=== PATIENT | male | born 1980 | race Caucasian/White ===

== ENCOUNTER 2016-06-13 15:32 | Emergency (ER) | payer OTHER ==
[2016-06-13 16:02] VITALS: BP 124/85
[2016-06-13] MEDS ORDERED: Famotidine TAB* 20 MG PO ONE (16:23)
--- NOTE | 2016-06-13 17:10 | RAD ---
INDICATION: Left lower quadrant pain COMPARISON: None TECHNIQUE: Noncontrast axial source images were obtained from the hemidiaphragms to the symphysis pubis. This examination was ordered using a renal stone protocol which is performed without oral or intravenous contrast and therefore has inherent limitations when used to evaluate other intra-abdominal or intrapelvic pathology. Consider conventional contrast enhanced imaging if clinically indicated. Lung bases: The lung bases are clear. Liver: The liver is normal in size. Noncontrast imaging shows no evidence of a hepatic mass or ductal dilatation. Gallbladder: There are no calcified gallstones. There is no evidence of wall thickening or pericholecystic fluid.. Spleen: The spleen is normal in size. The noncontrast CT appearance is normal. Pancreas: Noncontrast imaging shows no pancreatic mass or ductal dilitation. Adrenal glands: No masses are identified. Kidneys/Bladder: There is no evidence of nephrolithiasis or CT evidence of hydronephrosis. Noncontrast imaging shows no evidence of a renal mass. The bladder is unremarkable.. Adenopathy: There is no evidence of intraperitoneal or retroperitoneal adenopathy. Evaluation is limited without oral contrast. Fluid collections: There are no free or localized fluid collections. Vessels: The aorta and iliac vessels are normal in caliber. There are no significant atherosclerotic changes. The IVC appears normal Pelvic organs: The prostate and seminal vesicles appear normal GI tract: Evaluation of the bowel is limited without oral contrast. There is a hiatal hernia/patulous GE junction. The stomach, small bowel, and lower GI tract otherwise appear grossly normal. There are no obstructive findings. The appendix is visualized and appears normal. Soft tissues: No soft tissue abnormalities of the extraperitoneal abdomen or pelvis are identified. Osseous structures: There are no acute osseous findings. IMPRESSION: NONCONTRAST IMAGING SHOWS NO ACUTE CT FINDINGS
--- NOTE | 2016-06-13 17:20 | UC ---
UC General HPI - HPI Summary HPI Summary: patient has been nauseous for about a month c/o of LLQ pain and loose stools decreased appetite. no fever, no blood in stool, he does not voimit just feels nauseasted. denies dysuria.. patient has hx of RA, psoriasis - History of Current Complaint Chief Complaint: UCAbdominalPain Stated Complaint: NAUSEA Time Seen by Provider: 06/13/16 16:12 Hx Obtained From: Patient Onset/Duration: Gradual Onset, Lasting Weeks Timing: Constant Onset Severity: Mild Current Severity: Moderate Pain Intensity: 4 Pain Location at: LLQ Character: cramping, pressure Associated Signs & Symptoms: Positive: Nausea - Allergy/Home Medications Allergies/Adverse Reactions: Allergies Allergy/AdvReac Type Severity Reaction Status Date / Time Penicillins Allergy Rash Verified 06/13/16 16:02 Home Medications: Home Medications Ondansetron [Zuplenz] 4 mg PO Q6H PRN 06/13/16 [History Confirmed 06/13/16] Topiramate [Topamax] 50 mg PO TID PRN 06/13/16 [History Confirmed 06/13/16] predniSONE TAB* [Deltasone TAB*] 20 mg PO DAILY 06/13/16 [History Confirmed ] PMH/Surg Hx/FS Hx/Imm Hx Previously Healthy: Yes Endocrine History Of: Denies: Diabetes, Thyroid Disease, Hyperthyroidism, Hypothyroidism, Dyslipidemia Cardiovascular History Of: Reports: Hypertension Denies: Cardiac Disorders, Pacemaker/ICD, Myocardial Infarction, Congestive Heart Failure, Atrial Fibrillation, Deep Vein Thrombosis, Bleeding Disorders Respiratory History Of: Denies: COPD, Asthma, Bronchitis, Pneumonia, Pulmonary Embolism GI/ History Of: Denies: Gastroesophageal Reflux, Ulcer, Gastrointestinal Bleed, Gall Bladder Disease, Kidney Stones, Diverticulitis, Renal Disease, Urosepsis Neurological History Of: Denies: TIA, CVA, Dementia, Seizures, Migraine Psychological History Of: Denies: Anxiety, Depression, Bipolar Disorder, Schizophrenia, Post Traumatic Stress Disorder - Surgical History Surgical History: Yes Surgery Procedure, Year, and Place: Left Shoulder Bone Spurs, 2011, [place]; Left Elbow Bone Spurs, ~2010, [place]; Left Hand Silicone Knuckles, ~2009, [place]. LYMPH NODE BX - Family History Known Family History: Positive: Hypertension - Social History Alcohol Use: Rare Substance Use Type: Prescribed Substance Use Comment - Amount & Last Used: hydrocodone/acetaminophen Smoking Status (MU): Never Smoked Tobacco Review of Systems Constitutional: Negative Skin: Negative Eyes: Negative ENT: Negative Respiratory: Negative Cardiovascular: Negative Gastrointestinal: Abdominal Pain, Diarrhea Genitourinary: Negative Motor: Negative Neurovascular: Negative Musculoskeletal: Negative Neurological: Negative Psychological: Negative All Other Systems Reviewed And Are Negative: Yes Physical Exam Triage Information Reviewed: Yes Appearance: No Pain Distress, Well-Nourished, Ill-Appearing Vital Signs: Initial Vital Signs Temp 97.5 F 06/13/16 15:53 Pulse 107 06/13/16 15:53 Resp 16 06/13/16 15:53 BP 124/85 06/13/16 15:53 Pulse Ox 99 06/13/16 15:53 Vital Signs Reviewed: Yes Eye Exam: Normal Eyes: Positive: Conjunctiva Clear ENT Exam: Normal ENT: Positive: Hearing grossly normal, Pharynx normal Dental Exam: Normal Neck exam: Normal Neck: Positive: Supple, Nontender, No Lymphadenopathy Respiratory Exam: Normal Respiratory: Positive: Chest non-tender, Lungs clear, Normal breath sounds Cardiovascular Exam: Normal Cardiovascular: Positive: RRR, No Murmur, Pulses Normal Abdomen Description: Positive: Other: - soft, tender in LLQ, no rebound tenderness, no guarding, no organomegaly, no CVA tenderness, no palpable masses. Bowel Sounds: Positive: Present Musculoskeletal Exam: Normal Musculoskeletal: Positive: Strength Intact, No Edema, ROM Limited @ - bilateral hands due to RA Neurological Exam: Normal Neurological: Positive: Alert, Muscle Tone Normal Psychological Exam: Normal Skin Exam: Normal Course/Dx - Course Course Of Treatment: history obtained, medication reviewed, exam performed, patient was given a famotidine with good results, it did help with nuasea. CT of abdomen completed to Rule out LLQ acute issues. It was negative for any visible disease. Will prescribed famotidine for acid reflux/nausea. will draw a CBC, to rule out any WBC and infection. Will recommend follow up with GI if symptoms persist. - Differential Dx - Multi-Symptom Provider Diagnoses: nausea. LLQ pain. loose stool Discharge - Discharge Plan Condition: Stable Disposition: HOME Prescriptions: Famotidine TAB* [Pepcid TAB*] 20 mg PO BID #20 tab Patient Education Materials: Abdominal Pain (ED) Referrals: Cesar Wills [Primary Care Provider] - Santy Bonds MD [Medical Doctor] - Additional Instructions: I am taking some blood today to check for any infection. Your CT was normal. I recommend keeping your diet bland, continue with fluids. Take the famotidine 1- 2 times a day to help with the acid reflux/nausea. if symptoms persist I recommend follow up with a admitting coordinator.
[2016-06-14 10:16] LABS: Hematocrit 43 % (42-52); Hemoglobin 14.8 g/dl (14.0-18.0); Mean Corpuscular HGB Conc 34 g/dl (31-36); Mean Corpuscular Hemoglobin 30 pg (27-31); Mean Corpuscular Volume 88 fL (80-94); Mean Platelet Volume 10 um3 (7.4-10.4); Red Blood Count 4.91 10^6/ul (4.0-5.4); Red Cell Distribution Width 13 % (10.5-15); White Blood Count 9.9 10^3/ul (3.5-10.8)
== END 2016-06-13 17:38 | disposition home or self-care (01) ==
LOC: UCCORT 15:32
DX: R10.32 Left lower quadrant pain (principal); R19.7 Diarrhea, unspecified; R11.0 Nausea; Z88.0 Allergy status to penicillin
CPT/HCPCS: 36415; 74176; 85025; 99212; A9270-GY; G0463

== ENCOUNTER 2016-10-12 08:53 | Emergency (ER) | payer OTHER ==
[2016-10-12 09:01] VITALS: BP 130/93
[2016-10-12] MEDS ORDERED: NS 0.9% 1000 ML* 1,000 ML IV ONE (09:09)
[2016-10-12] MEDS ORDERED: Ketorolac INJ* 60 MG/2 ML VIAL IV PUSH ONE (09:10)
[2016-10-12] MEDS ORDERED: Ondansetron INJ* 2 MG/ML VIAL IV ONE (09:11)
[2016-10-12] MEDS ORDERED: Ketorolac INJ* 30 MG/ML 1 ML VIAL IV PUSH ONE (09:17)
--- NOTE | 2016-10-12 10:44 | UC ---
Headache HPI - History Of Current Complaint Chief Complaint: UCGeneralIllness Stated Complaint: HEADACHE,NAUSEA Time Seen by Provider: 10/12/16 09:05 Hx Obtained From: Patient, Family/[employer] Onset/Duration: Gradual Onset, Lasting Days - 1, Still Present Onset Of Symptoms: Gradual Initially Headache Was: Initial Pain Scale(0-10)= - 8, Severe Pain Intensity: 2 Pain Scale Used: 0-10 Numeric Timing: Constant Character: Throbbing Location of Headache: Diffuse Aggravating Factor: Nothing Allevating Factors: Nothing Associated Signs And Symptoms: Positive: Dizziness, Nausea. Negative: Seizure, Vomiting, Sinus Pressure, Fever, Neck Pain, Neck Stiffness, Decreased LOC, Visual Changes - Allergies/Home Medications Allergies/Adverse Reactions: Allergies Allergy/AdvReac Type Severity Reaction Status Date / Time Penicillins Allergy Rash Verified 10/12/16 09:01 PMH/Surg Hx/FS Hx/Imm Hx Endocrine History Of: Denies: Diabetes, Thyroid Disease, Hyperthyroidism, Hypothyroidism, Dyslipidemia Cardiovascular History Of: Reports: Hypertension Denies: Cardiac Disorders, Pacemaker/ICD, Myocardial Infarction, Congestive Heart Failure, Atrial Fibrillation, Deep Vein Thrombosis, Bleeding Disorders Respiratory History Of: Denies: COPD, Asthma, Bronchitis, Pneumonia, Pulmonary Embolism GI/ History Of: Denies: Gastroesophageal Reflux, Ulcer, Gastrointestinal Bleed, Gall Bladder Disease, Kidney Stones, Diverticulitis, Renal Disease, Urosepsis Neurological History Of: Denies: TIA, CVA, Dementia, Seizures, Migraine Psychological History Of: Denies: Anxiety, Depression, Bipolar Disorder, Schizophrenia, Post Traumatic Stress Disorder - Surgical History Surgical History: Yes Surgery Procedure, Year, and Place: Left Shoulder Bone Spurs, 2011, [place]; Left Elbow Bone Spurs, ~2010, [place]; Left Hand Silicone Knuckles, ~2009, [place]. LYMPH NODE BX - Family History Known Family History: Positive: Hypertension - Social History Alcohol Use: Rare Substance Use Type: Prescribed Substance Use Comment - Amount & Last Used: hydrocodone/acetaminophen Smoking Status (MU): Never Smoked Tobacco Review of Systems Constitutional: Negative Skin: Negative Eyes: Negative ENT: Negative Respiratory: Negative Cardiovascular: Negative Neurological: Headache All Other Systems Reviewed And Are Negative: Yes Physical Exam Triage Information Reviewed: Yes Appearance: Ill-Appearing, Pain Distress Vital Signs: Initial Vital Signs Temp 98.3 F 10/12/16 08:57 Pulse 129 05/16/17 08:57 Resp 18 10/12/16 08:57 BP 130/93 10/12/16 08:57 Pulse Ox 97 10/12/16 08:57 Vital Signs Reviewed: Yes Eyes: Positive: Conjunctiva Clear ENT: Positive: Normal ENT inspection, Hearing grossly normal, Pharynx normal Neck exam: Normal Neck: Positive: Supple, Nontender, No Lymphadenopathy Respiratory: Positive: Chest non-tender, Lungs clear, Normal breath sounds Cardiovascular: Positive: RRR, No Murmur, Pulses Normal Musculoskeletal Exam: Normal Musculoskeletal: Positive: Strength Intact, ROM Intact, No Edema Neurological Exam: Normal Neurological: Positive: Alert Skin Exam: Normal UC Physical Exam Vital Signs On Initial Exam: Initial Vitals Temp Pulse Resp BP Pulse Ox 98.3 F 129 18 130/93 97 10/12/16 08:57 10/12/16 08:57 10/12/16 08:57 10/12/16 08:57 10/12/16 08:57 - Neurological Exam Neurological: Sensory/Motor Intact, Alert, Oriented to Person Place, Time, CN Intact II-III, Normal Gait, Speech Normal Headache Course/Dx - Differential Dx/Diagnosis Provider Diagnoses: ACUTE HEADACHE Discharge - Discharge Plan Condition: Stable Disposition: HOME Prescriptions: Benzonatate CAP* [Tessalon 100 MG CAP*] 100 mg PO TID PRN #21 cap PRN Reason: Cough Ondansetron [Zofran 8 MG Odt] 8 mg PO Q8H PRN #12 tab PRN Reason: Nausea/Vomiting SUMAtriptan TAB* [Imitrex TAB*] 100 mg PO SEE INSTRUCTIONS #10 tab Patient Education Materials: Acute Headache (ED) Referrals: Cesar Wills [Primary Care Provider] - 7 Days
== END 2016-10-12 10:16 | disposition home or self-care (01) ==
LOC: UCCORT 08:53
DX: R51 Headache (principal); Z88.0 Allergy status to penicillin
CPT/HCPCS: 96361; 96365; 96374; 96375; 99212; G0463; J1885; J2405

== ENCOUNTER 2017-05-19 13:45 | Emergency (ER) | payer OTHER ==
[2017-05-19 14:00] VITALS: BP 125/75
--- NOTE | 2017-05-19 14:31 | UC ---
Back Pain HPI - HPI Summary HPI Summary: 37 year - History of Current Complaint Chief Complaint: UCBackPain Stated Complaint: BACK PAIN Time Seen by Provider: 05/19/17 14:31 Hx Obtained From: Patient Onset/Duration: Gradual Onset Severity Initially: Moderate Severity Currently: Moderate Pain Scale Used: 0-10 Numeric - 7 Character: Sharp Aggravating Factor(s): Movement Alleviating Factor(s): Position Associated Signs And Symptoms: Positive: Negative - Risk Factors AAA Risk Factors: Negative TAD Risk Factors: Negative Cauda Equina Risk Factors: Negative Epidural Abscess Risk Factors: Negative - Allergies/Home Medications Allergies/Adverse Reactions: Allergies Allergy/AdvReac Type Severity Reaction Status Date / Time Penicillins Allergy Rash Verified 05/19/17 13:54 PMH/Surg Hx/FS Hx/Imm Hx Previously Healthy: Yes - Surgical History Surgical History: Yes Surgery Procedure, Year, and Place: Left Shoulder Bone Spurs, 2011, [place]; Left Elbow Bone Spurs, ~2010, [place]; Left Hand Silicone Knuckles, ~2009, [place]. LYMPH NODE BX - Family History Known Family History: Positive: Hypertension - Social History Alcohol Use: Rare Substance Use Type: Prescribed Substance Use Comment - Amount & Last Used: hydrocodone/acetaminophen Smoking Status (MU): Never Smoked Tobacco - Immunization History Most Recent Influenza Vaccination: February 2017 Review of Systems Constitutional: Negative Skin: Negative Eyes: Negative ENT: Sore Throat, Nasal Discharge, Sinus Congestion, Sinus Pain/Tenderness Respiratory: Negative Cardiovascular: Negative Gastrointestinal: Negative Genitourinary: Negative Motor: Negative Neurovascular: Negative Musculoskeletal: Negative Neurological: Negative Psychological: Negative All Other Systems Reviewed And Are Negative: Yes Physical Exam Triage Information Reviewed: Yes Vital Signs: Initial Vital Signs Temp 36.1 C 05/19/17 13:53 Pulse 108 05/19/17 13:53 Resp 18 05/19/17 13:53 BP 125/75 05/19/17 13:53 Pulse Ox 98 05/19/17 13:53 Vital Signs Reviewed: Yes Eye Exam: Normal ENT Exam: Normal Dental Exam: Normal Neck exam: Normal Neck: Positive: 1 Respiratory Exam: Normal Cardiovascular Exam: Normal Abdominal Exam: Normal Musculoskeletal: Positive: Other: - lower back pain lower back spasm Neurological Exam: Normal Psychological Exam: Normal Skin Exam: Normal Back Pain Course/Dx - Differential Dx/Diagnosis Provider Diagnoses: lower back pain Discharge - Discharge Plan Condition: Stable Disposition: HOME Prescriptions: Methocarbamol TAB* [Robaxin 500 MG TAB*] 500 mg PO TID PRN #30 tab PRN Reason: Spasms - Back Patient Education Materials: Low Back Strain (ED) Referrals: Yogi Hopkins [Physical Therapist] - Cesar Wills [Primary Care Provider] -
== END 2017-05-19 14:45 | disposition home or self-care (01) ==
LOC: UCCORT 13:45
DX: M54.5 Low back pain (principal)
CPT/HCPCS: 99212; G0463

== ENCOUNTER 2017-06-27 17:19 | Emergency (ER) | payer OTHER ==
[2017-06-27 19:57] VITALS: BP 134/83
--- NOTE | 2017-06-27 20:27 | ED ---
GI/ HPI - HPI Summary HPI Summary: 37 yr old male with the complaint of dysuria, frequency of urination and urgency. Onset this morning. No fever or chills. No penile drainage. The patient is not having sexual relations with anyone. Denies testes, groin pain. - History of Current Complaint Chief Complaint: UCGU Time Seen by Provider: 06/27/17 19:57 Stated Complaint: URINARY Pain Intensity: 0 - Allergy/Home Medications Allergies/Adverse Reactions: Allergies Allergy/AdvReac Type Severity Reaction Status Date / Time Penicillins Allergy Rash Verified 06/27/17 19:57 PMH/Surg Hx/FS Hx/Imm Hx Endocrine/Hematology History: Denies: Hx Diabetes, Hx Thyroid Disease Cardiovascular History: Reports: Hx Hypertension Denies: Hx Congestive Heart Failure, Hx Deep Vein Thrombosis, Hx Myocardial Infarction, Hx Pacemaker/ICD Respiratory History: Denies: Hx Asthma, Hx Chronic Obstructive Pulmonary Disease (COPD), Hx Pneumonia, Hx Pulmonary Embolism GI History: Denies: Hx Gall Bladder Disease, Hx Gastrointestinal Bleed, Hx Ulcer, Hx Urosepsis History: Denies: Hx Kidney Stones, Hx Renal Disease Neurological History: Denies: Hx Dementia, Hx Migraine, Hx Seizures, Hx Transient Ischemic Attacks (TIA) Psychiatric History: Denies: Hx Anxiety, Hx Depression, Hx Schizophrenia, Hx Bipolar Disorder - Surgical History Surgery Procedure, Year, and Place: Left Shoulder Bone Spurs, 2011, [place]; Left Elbow Bone Spurs, ~2010, [place]; Left Hand Silicone Knuckles, ~2009, [place]. LYMPH NODE BX Infectious Disease History: No Infectious Disease History: Denies: Traveled Outside the [place] in Last 30 Days - Family History Known Family History: Positive: Hypertension - Social History Lives: With Family Alcohol Use: Rare Substance Use Type: Reports: Prescribed Substance Use Comment - Amount & Last Used: hydrocodone/acetaminophen Smoking Status (MU): Never Smoked Tobacco Review of Systems Constitutional: Negative Positive: dysuria, frequency, urgency All Other Systems Reviewed And Are Negative: Yes Physical Exam Triage Information Reviewed: Yes Vital Signs On Initial Exam: Initial Vitals Temp Pulse Resp BP Pulse Ox 98.3 F 100 18 134/83 99 06/27/17 19:53 06/27/17 19:53 06/27/17 19:53 06/27/17 19:53 06/27/17 19:53 Vital Signs Reviewed: Yes Appearance: Positive: Well-Appearing, No Pain Distress Skin: Positive: Warm, Skin Color Reflects Adequate Perfusion Head/Face: Positive: Normal Head/Face Inspection Eyes: Positive: EOMI ENT: Positive: Normal ENT inspection Neck: Positive: Nontender Respiratory/Lung Sounds: Positive: Clear to Auscultation, Breath Sounds Present Cardiovascular: Positive: RRR. Negative: Murmur Abdomen Description: Positive: Nontender. Negative: CVA Tenderness (R), CVA Tenderness (L) Musculoskeletal: Positive: Strength/ROM Intact Neurological: Positive: Sensory/Motor Intact, Alert, Oriented to Person Place, Time, CN Intact II-III Psychiatric: Positive: Normal - Abel Coma Scale Best Eye Response: 4 - Spontaneous Best Motor Response: 6 - Obeys Commands Best Verbal Response: 5 - Oriented Coma Scale Total: 15 Diagnostics - Vital Signs Vital Signs Temp Pulse Resp BP Pulse Ox 06/27/17 19:53 98.3 F 100 18 134/83 99 - Laboratory Lab Results: Lab Results 06/27/17 Range/Units 19:58 POC Urine Color Yellow POC Urine Clarity Clear POC Urine pH 5.5 (5-9) POC Ur Specif [place] 1.020 (1.010-1.030) POC Urine Protein Negative (Negative) POC Ur Glucose (UA) Negative (Negative) POC Urine Ketones Negative (Negative) POC Urine Blood 1+ H (Negative) POC Urine Nitrite Negative (Negative) POC Urine Bilirubin Negative (Negative) POC Urine Urobilinogen 0.2 (Negative) POC U Leukocyte Esteras Negative (Negative) Lab Statement: Any lab studies that have been ordered have been reviewed, and results considered in the medical decision making process. GIGU Course/Dx - Course Course Of Treatment: 37 yr old with UTI symptoms. Rx with cipro. Cluture sent. GC chlamydia sent. He states no sexual relations. Await culture. - Diagnoses Provider Diagnoses: UTI (urinary tract infection) Discharge - Discharge Plan Condition: Good Disposition: HOME Prescriptions: Ciprofloxacin TAB* [Cipro 500 MG TAB*] 500 mg PO BID #6 tab Patient Education Materials: Dysuria (ED) Referrals: Cesar Wills [Primary Care Provider] - 1 Day
== END 2017-06-27 20:31 | disposition home or self-care (01) ==
LOC: UCCORT 17:19
DX: N39.0 Urinary tract infection, site not specified (principal); I10 Essential (primary) hypertension; Z88.0 Allergy status to penicillin
CPT/HCPCS: 81003; 87086; 87491; 87591; 99212; G0463

== ENCOUNTER 2017-08-22 16:15 | Emergency (ER) | payer MEDICARE, OTHER ==
[2017-08-22 17:12] VITALS: BP 145/99
--- NOTE | 2017-08-22 17:26 | UC ---
Back Pain HPI - HPI Summary HPI Summary: pt c/o pain to his low back for 4 days. it began with prolonged sitting. he does have a hx of compression fx L4 in 1991 from [facility] but denies acute injury. he was dx with kidney stones 4 weeks ago and had a stent. 6 stones passed but 2 remain on R. - History of Current Complaint Hx Obtained From: Patient Onset/Duration: Gradual Onset Timing: Constant Pain Intensity: 8 Character: Aching Aggravating Factor(s): Movement Alleviating Factor(s): Rest Associated Signs And Symptoms: Negative: Fever, Weakness, Numbness, Tingling, Abdominal Pain, Flank Pain, Bladder Incontinence, Bowel Incontinence - Risk Factors AAA Risk Factors: Negative TAD Risk Factors: Negative Cauda Equina Risk Factors: Negative Epidural Abscess Risk Factors: Negative <Elza Bautista - Last Filed: 08/22/17 17:19> <Love Brown - Last Filed: 08/22/17 19:32> - History of Current Complaint Chief Complaint: UCBackPain Stated Complaint: BACK PAIN Time Seen by Provider: 08/22/17 17:17 - Allergies/Home Medications Allergies/Adverse Reactions: Allergies Allergy/AdvReac Type Severity Reaction Status Date / Time Penicillins Allergy Rash Verified 08/22/17 17:17 PMH/Surg Hx/FS Hx/Imm Hx - Additional Past Medical History Additional PMH: RA, compression fx L4 GI/ History: Gastroesophageal Reflux, Kidney Stones Neurological History: Migraine - Surgical History Surgical History: Yes Surgery Procedure, Year, and Place: Left Shoulder Bone Spurs, 2011, [place]; Left Elbow Bone Spurs, ~2010, [place]; Left Hand Silicone Knuckles, ~2009, [place]. LYMPH NODE BX - Family History Known Family History: Positive: Hypertension - Social History Lives: With Family Alcohol Use: Rare Substance Use Type: Prescribed Substance Use Comment - Amount & Last Used: hydrocodone/acetaminophen Smoking Status (MU): Never Smoked Tobacco - Immunization History Most Recent Influenza Vaccination: February 2017 <Elza Bautista - Last Filed: 08/22/17 17:19> Review of Systems Constitutional: Negative Skin: Negative Eyes: Negative ENT: Negative Respiratory: Negative Cardiovascular: Negative Gastrointestinal: Negative Genitourinary: Negative Motor: Negative Neurovascular: Negative Musculoskeletal: Other: - low back pain Neurological: Negative Psychological: Negative Is Patient Immunocompromised?: No All Other Systems Reviewed And Are Negative: Yes <Jaya Bautistaie - Last Filed: 08/22/17 17:19> Physical Exam Triage Information Reviewed: Yes Appearance: Well-Appearing Vital Signs: Initial Vital Signs Temp 97.9 F 08/22/17 17:05 Pulse 131 08/22/17 17:05 Resp 15 08/22/17 17:05 BP 145/99 08/22/17 17:05 Pulse Ox 97 08/22/17 17:05 Vital Signs Reviewed: Yes Eye Exam: Normal ENT: Positive: Normal ENT inspection Neck: Positive: Supple, Nontender, No Lymphadenopathy Respiratory: Positive: Lungs clear, Normal breath sounds Cardiovascular: Positive: RRR, No Murmur, Pulses Normal Abdomen Description: Positive: Nontender, No Organomegaly, Soft Bowel Sounds: Positive: Present Musculoskeletal: Positive: Other: - neck and back are without gross deformity, swelling or discoloration. no rash. spine is not tender. tender to paraspinal mm in lumbar region. ROM is intact throughout but pain is reproduced and worsened with movement. neg straight leg raises. no saddle ansthesia. 2+ reflexes x4. 5/5 strength x4. bilateral hand deformities c/w RA. Neurological: Positive: Alert Psychological: Positive: Age Appropriate Behavior Skin Exam: Normal <Elza Bautista - Last Filed: 08/22/17 17:19> Vital Signs: Initial Vital Signs Temp 97.9 F 08/22/17 17:05 Pulse 131 08/22/17 17:05 Resp 15 08/22/17 17:05 BP 145/99 08/22/17 17:05 Pulse Ox 97 08/22/17 17:05 <Love Brown - Last Filed: 08/22/17 19:32> Re-Evaluation - Re-Evaluation Second Eval Re-Evaluation Time: 18:07 - starting to have a little less pain. comfortable with discharge <Elza Bautista - Last Filed: 08/22/17 17:19> Back Pain Course/Dx - Course Course Of Treatment: no rash from singles, no concern for infection and no acute abdomen. no cauda equina. no acute injury thus no xray. not typical for renal colic. hx and exam supports musculoskeletal back pain. given pain here, will tx with low dose of toradol then tx with flexeril at home. pt has pain medications. ithink the BP is pain related but will be rechecked on f/u appt. HR = 96 at time of discharge. - Differential Dx/Diagnosis Provider Diagnoses: Acute low back pain <Elza Bautista - Last Filed: 08/22/17 17:19> Discharge - Sign-Out/Discharge Documenting (check all that apply): Discharge - Billing Disposition and Condition Condition: STABLE Disposition: HOME <Elza Bautista - Last Filed: 08/22/17 17:19> - Billing Disposition and Condition Condition: STABLE Disposition: HOME <Love Brown - Last Filed: 08/22/17 19:32> - Discharge Plan Condition: Stable Disposition: HOME Prescriptions: Cyclobenzaprine TAB* [Flexeril 10 MG TAB*] 10 mg PO TID PRN 4 Days #12 tab PRN Reason: back pain Patient Education Materials: Acute Low Back Pain (ED) Referrals: Doris Hatch MD [Primary Care Provider] - 3 Days Attestation Statement User Type: Provider - I was available for consult. This patient was seen by the advanced practice provider. The patient was not presented to, seen by, or examined by me.-Bud <Love Brown - Last Filed: 08/22/17 19:32>
[2017-08-22] MEDS ORDERED: Ketorolac INJ* 30 MG/ML 1 ML VIAL IM ONE (17:36)
== END 2017-08-22 18:18 | disposition home or self-care (01) ==
LOC: UCCORT 16:15
DX: M54.5 Low back pain (principal); Z87.442 Personal history of urinary calculi; Z88.0 Allergy status to penicillin
CPT/HCPCS: 96372; 99212; G0463; J1885